=== PATIENT | male | born 1975 | race Caucasian/White ===

== ENCOUNTER 2016-09-23 16:31 | Emergency (ER) | payer SELFPAY ==
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
[2016-09-23] MEDS ORDERED: Sodium Chloride 0.9% 1000 ML 1,000 ML IV SCH (16:45)
[2016-09-23] MEDS ORDERED: Sodium Chloride 0.9% 1000 ML 1,000 ML ONE (16:53)
[2016-09-23 18:23] VITALS: BP 144/82; PULSE 77; O2SAT 98
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
== END 2016-09-23 18:22 | disposition home or self-care (01) ==
LOC: ED 16:31
DX: S00.93XA Contusion of unspecified part of head, initial encounter (principal); S60.221A Contusion of right hand, initial encounter; S80.11XA Contusion of right lower leg, initial encounter; S16.1XXA Strain of muscle, fascia and tendon at neck level, initial encounter; V89.2XXA Person injured in unspecified motor-vehicle accident, traffic, initial encounter
CPT/HCPCS: 36000; 70450; 72125; 73130; 73590; 96360; 96361; 99283; 99284; 99285